=== PATIENT | female | born 1965 | race Caucasian/White ===

== ENCOUNTER 2019-01-21 18:32 | Emergency (ER) | payer MEDICARE ==
[~2019-01-21] VITALS: Ht 172.7 cm; Wt 65.8 kg
[2019-01-21] MEDS ORDERED: REMERON30 MG PO (18:57)
[2019-01-21] MEDS ORDERED: GEODON20 MG PO (18:57)
[2019-01-21] MEDS ORDERED: PRAZOSIN HCL5 MG PO (18:58)
[2019-01-21] MEDS ORDERED: NORCO 5-325 TA1 EACH PO (20:32)
== END 2019-01-21 20:59 | disposition home or self-care (01) ==
LOC: ED 18:32
DX: S42.332A Displaced oblique fracture of shaft of humerus, left arm, initial encounter for closed fracture (principal); F32.9 Major depressive disorder, single episode, unspecified; F43.10 Post-traumatic stress disorder, unspecified; Z87.891 Personal history of nicotine dependence; Z98.84 Bariatric surgery status; Z88.5 Allergy status to narcotic agent; Z88.0 Allergy status to penicillin; Z79.899 Other long term (current) drug therapy; Y04.0XXA Assault by unarmed brawl or fight, initial encounter
CPT/HCPCS: 72125; 73030; 73060; 96374; 96375; 99284-25; J1170; J1885; J2405

== ENCOUNTER 2020-03-28 06:35 | Day surgery (SDC) | payer MEDICARE, OTHER ==
[~2020-03-28] VITALS: Ht 172.7 cm; Wt 68.0 kg
[~2020-03-28 06:35] MED LIST: GEODON20 MG PO; LAMICTAL200 MG PO; LEVOTHYROXINE88 MCG PO; MULTI VITAMIN1 EACH PO; NORCO 5-325 TA1 EACH PO; PRAZOSIN HCL5 MG PO; REMERON30 MG PO; VITAMIN B-1100 M1 PO
--- NOTE | 2020-03-28 08:01 | NUR ---
03/28/20 0801 Shea Braun 0755 PATIENT ARRIVES TO PACU SLEEPING, DOES NOT RESPOND TO VERBAL STIMULI. RESP EVEN AND UNLABORED, NC AT 4 LITERS. TURNED OFF AFTER ARRIVAL TO PACU. ROOM AIR SATS >94%.
--- NOTE | 2020-03-28 08:43 | NUR ---
PT IS ALERT, ORIENTED AND ADMITTEDLY ANXIOUS. PT SAID HER PALMS WERE SWEATY. HELPED PT UNDERSTAND WHAT TO EXPECT-QUESTIONS ASKED AND ANSWERED. PT ASKED FOR PRAYER
--- NOTE | 2020-04-01 11:08 | PATH ---
[facility] [address], [place] [address] Signed SPECIMEN(S): A GASTRIC POUCH SPECIMEN(S): B LOWER ESOPHAGUS SPECIMEN(S): C MIDDLE ESOPHAGUS SPECIMEN SOURCE: A. GASTRIC POUCH B. LOWER ESOPHAGUS C. MIDDLE ESOPHAGUS CLINICAL HISTORY: Preop: Abdominal pain; severe epigastric pain; history of bariatric surgical procedure. Postop: Normal. MICROSCOPIC DESCRIPTION: Histologic sections of all submitted blocks are examined by light microscopy. These findings, together with the gross examination, support the pathologic diagnosis. FINAL PATHOLOGIC DIAGNOSIS: A. Stomach, gastric pouch, biopsy: - Oxyntic mucosa with no histopathologic abnormality. - Negative for Helicobacter organisms on HE stain. - Negative for dysplasia or malignancy. B. Esophagus, lower, biopsy: - Squamous mucosa with mild chronic inflammation and reactive epithelial changes, consistent with reflux esophagitis. - Negative for intestinal metaplasia, dysplasia, or malignancy. C. Esophagus, middle, biopsy: - Squamous mucosa with no histopathologic abnormality. - Negative for intestinal metaplasia, dysplasia, or malignancy. NAL:cml:C2NR GROSS DESCRIPTION: Three specimens are received in three containers, labeled ", Oct." A. The specimen, labeled "Oct, #1," and designated on the requisition "gastric pouch," is received in formalin and consists of one smith soft tissue fragment that measures 0.7 cm in greatest dimension. The specimen is entirely submitted in cassette (A1). B. The specimen, labeled "Oct, #2," and designated on the requisition "lower esophagus," is received in formalin and consists of one white-smith soft tissue fragment that measures 0.4 cm in greatest dimension. The specimen is entirely submitted in cassette (B1). PATIENT NAME: SALTY BELLE PATHOLOGY DATE OF : 61 REPORT #: [id number] PHYSICIAN: MAG PATHOLOGY PCP: BENY ORTIZ MD REPORT IS CONFIDENTIAL AND NOT TO BE RELEASED WITHOUT AUTHORIZATION [facility] [address] [place] [address] Signed C. The specimen, labeled "S[place] Belle, #3," and designated on the requisition "middle esophagus," is received in formalin and consists of two white-smith soft tissue fragments that measure 0.4 and 0.3 cm in greatest dimension. The specimen is entirely submitted in cassette (C1). FB (under the direct supervision of a pathologist) The Gross Description was prepared using a voice recognition system. The report was reviewed for accuracy; however, sound-alike word errors, addition and/or deletions may occur. If there is any question about this report, please contact Client Services. PERFORMING LABORATORY: The technical component was performed by [facility], [address] [place] [id number] (Clinical Phlebotomist: Yara Ríos MD; CLIA# [id number]). [facility], [address] [address] (CLIA# [id number]). Diagnostician: Mariana Prakash MD Pathologist Electronically Signed 04/01/2020 Copies: ~ PATIENT NAME: SALTY BELLE PATHOLOGY DATE OF : 61 REPORT #: [id number] PHYSICIAN: MAG PATHOLOGY PCP: BENY ROTIZ MD REPORT IS CONFIDENTIAL AND NOT TO BE RELEASED WITHOUT AUTHORIZATION
--- NOTE | 2020-04-02 10:50 | OR ---
[facility] [address], [place] [address] Signed DATE OF OPERATION: 03/28/2020 SURGEON: Gage Santana MD PREOPERATIVE DIAGNOSES: 1. History of Maninder-en-Y gastric bypass (2003). 2. Episodic severe abdominal pain. POSTOPERATIVE DIAGNOSES: 1. Normal-appearing esophagus, gastric pouch and Maninder limb without sign of stenosis, ulceration or neoplasm. 2. Small hiatal hernia at GE junction. PROCEDURE: Upper endoscopy. ANESTHESIA: Intravenous sedation, propofol infusion; Paul Langford CRNA. INDICATION: This 54-year-old white woman is a patient of Dr. Beny Ortiz. She underwent a Maninder-en-Y gastric bypass in 2003. She has had episodic bouts of severe epigastric pain. She is currently symptom free. She is admitted to undergo upper endoscopy to assess for neoplasm, ulceration or stenotic anastomoses. Mindful of the possibility of episodic internal herniation accounting for symptoms as well. The risks of bleeding, infection, and perforation were reviewed with her, she understands and wished to proceed. FINDINGS: The esophagus, stomach and jejunal limb were all normal. There was no sign of stenosis, ulceration, or other abnormality. CLOtest was negative. DESCRIPTION OF PROCEDURE: The patient was brought to the endoscopy suite and given topical Hurricaine hypopharyngeal anesthesia and placed in lateral decubitus position. She was given intravenous sedation with propofol infusional technique. An Olympus video upper endoscope was passed through the oropharynx after placement of a bite block, the vocal cords and surrounding soft tissue were normal. Scope was advanced to the esophagus throughout its length, it was normal. The scope entered into the stomach, which was a very small gastric pouch, it appeared non-inflamed. The anastomosis for jejunum was Electronically Signed By: GAGE SANTANA MD 04/02/20 1050 PATIENT NAME: KAREN BELLE OPERATIVE REPORT DATE OF : 61 REPORT #: [id number] PHYSICIAN: GAGE SANTANA MD PCP: BENY ORTIZ MD REPORT IS CONFIDENTIAL AND NOT TO BE RELEASED WITHOUT AUTHORIZATION [facility] [address], [place] [address] Signed entirely patent. There appeared to be somewhat of a [id number] anastomosis. The scope was passed down the jejunal limb as far as possible showing no sign of abnormality, specifically no stricture, neoplasm, or ulceration. The scope was withdrawn to the gastrojejunal anastomosis and it was normal. Biopsies were obtained of the gastric pouch and the GE junction. Retroflexed view was undertaken despite the small gastric pouch size, which showed a somewhat patulous flap valve. Withdrawal to the distal esophagus showed no sign of ulceration, neoplasm, varices or Lewis's epithelium. Biopsies were obtained. The scope was withdrawn to the mid esophagus where biopsies were additionally obtained. Scope was removed. The patient was taken to the recovery room in good condition. CONCLUSION DIAGNOSIS: No findings on upper endoscopy to account for episodic symptoms. PLAN: We will organize for a CT scan of the abdomen with GI contrast to assess if there may be in fact an internal hernia accounting for her episodic symptoms. MD SHERITA Guerin/JUSTICEL /[phone] cc: Beny Ortiz MD Copies: BENY ORTIZ DMD ~ Electronically Signed By: GAGE SANTANA MD 04/02/20 1050 PATIENT NAME: KAREN BELLE OPERATIVE REPORT DATE OF : 61 REPORT #: [id number] PHYSICIAN: GAGE SANTANA MD PCP: BENY ORTIZ MD REPORT IS CONFIDENTIAL AND NOT TO BE RELEASED WITHOUT AUTHORIZATION
== END 2020-03-28 08:25 | disposition home or self-care (01) ==
LOC: DS 06:35 → OPS 06:35 → DS 11:00
PROVIDERS: Surgery
PROC: 0DB68ZX Excision of Stomach, Via Natural or Artificial Opening Endoscopic, Diagnostic (ICD-10-PCS; 2020-03-28)
PROC: 0DB28ZX Excision of Middle Esophagus, Via Natural or Artificial Opening Endoscopic, Diagnostic (ICD-10-PCS; 2020-03-28)
PROC: 0DB38ZX Excision of Lower Esophagus, Via Natural or Artificial Opening Endoscopic, Diagnostic (ICD-10-PCS; principal; 2020-03-28 06:45)
DX: K20.9 Esophagitis, unspecified (principal); K44.9 Diaphragmatic hernia without obstruction or gangrene; B18.2 Chronic viral hepatitis C; F43.10 Post-traumatic stress disorder, unspecified; E03.9 Hypothyroidism, unspecified; F41.9 Anxiety disorder, unspecified; F32.9 Major depressive disorder, single episode, unspecified; Z98.84 Bariatric surgery status; Z88.0 Allergy status to penicillin; Z79.899 Other long term (current) drug therapy
CPT/HCPCS: 88305; J2704; J7121

== ENCOUNTER 2020-06-23 08:57 | Emergency (ER) | payer MEDICARE, OTHER ==
[~2020-06-23] VITALS: Ht 167.6 cm; Wt 68.0 kg
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
[2020-06-23] MEDS ORDERED: OMEPRAZOLE20 MG PO (09:11)
== END 2020-06-23 10:30 | disposition left against medical advice (07) ==
LOC: ED 08:57
DX: R10.13 Epigastric pain (principal); F43.10 Post-traumatic stress disorder, unspecified; F32.9 Major depressive disorder, single episode, unspecified; Z88.5 Allergy status to narcotic agent; Z88.0 Allergy status to penicillin; Z79.899 Other long term (current) drug therapy
CPT/HCPCS: 80053; 83690; 83735; 85025; 99284

== ENCOUNTER 2022-05-19 14:28 | Emergency (ER) | payer MEDICARE, OTHER ==
[~2022-05-19] VITALS: Ht 167.6 cm; Wt 86.4 kg
[~2022-05-19 14:28] MED LIST changes: +OMEPRAZOLE20 MG PO
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
[2022-05-19] MEDS ORDERED: CALCIUM 1,0001 EAC1 PO (16:12)
== END 2022-05-19 18:52 | disposition home or self-care (01) ==
LOC: ED 14:28
DX: S30.0XXA Contusion of lower back and pelvis, initial encounter (principal); Z88.0 Allergy status to penicillin; Z88.5 Allergy status to narcotic agent; Z88.8 Allergy status to other drugs, medicaments and biological substances; X58.XXXA Exposure to other specified factors, initial encounter
CPT/HCPCS: 72100; 96372; 99283-25; A9270; J2270

== ENCOUNTER 2023-08-22 18:34 | Emergency (ER) | payer MEDICARE, OTHER ==
[~2023-08-22] VITALS: Ht 172.7 cm; Wt 83.1 kg
[~2023-08-22 18:34] MED LIST changes: +CALCIUM 1,0001 EAC1 PO; +DIAZEPAM5 MG PO; +DICLOFENAC SOD100 G1; +DULOXETINE HCL30 MG PO; +GABAPENTIN300 MG PO; +MELOXICAM15 MG PO; +MIRTAZAPINE30 MG PO; +ZANAFLEX4 MG PO
[2023-08-22 21:04] VITALS: BP 128/94
== END 2023-08-22 21:07 | disposition home or self-care (01) ==
LOC: ED 18:34
DX: S39.012A Strain of muscle, fascia and tendon of lower back, initial encounter (principal); M54.6 Pain in thoracic spine; W06.XXXA Fall from bed, initial encounter; Z88.0 Allergy status to penicillin; Z88.5 Allergy status to narcotic agent; Z88.8 Allergy status to other drugs, medicaments and biological substances; Z79.899 Other long term (current) drug therapy; Z79.890 Hormone replacement therapy
CPT/HCPCS: 72070; 72100; 96374; 96375; 99283-25; J1200; J2175

== ENCOUNTER 2024-05-16 15:50 | Emergency (ER) | payer OTHER, MEDICARE ==
[~2024-05-16] VITALS: Ht 172.7 cm; Wt 86.4 kg
[2024-05-16] MEDS ORDERED: HYDROmorphone HCL 2 MG/ML VIAL IM ONE (17:00)
[2024-05-16] MEDS ORDERED: diphenhydrAMINE HCL 25 MG CAP PO ONE (18:15)
[2024-05-16 19:32] VITALS: BP 136/90
== END 2024-05-16 19:35 | disposition home or self-care (01) ==
LOC: ED 15:50
DX: S16.1XXA Strain of muscle, fascia and tendon at neck level, initial encounter (principal); S39.012A Strain of muscle, fascia and tendon of lower back, initial encounter; V43.52XA Car driver injured in collision with other type car in traffic accident, initial encounter; Z88.0 Allergy status to penicillin; Z88.5 Allergy status to narcotic agent; Z88.8 Allergy status to other drugs, medicaments and biological substances; Z79.899 Other long term (current) drug therapy; Z79.890 Hormone replacement therapy
CPT/HCPCS: 72125; 72131; 96372; 99284-25; J1170

== ENCOUNTER 2025-01-14 15:09 | Emergency (ER) | payer MEDICARE, OTHER ==
[~2025-01-14] VITALS: Ht 172.7 cm; Wt 83.3 kg
[2025-01-14] MEDS ORDERED: NITROFURANTOIN100 M1 PO (16:37)
[2025-01-14] MEDS ORDERED: LAMOTRIGINE200 MG PO (16:37)
[2025-01-14] MEDS ORDERED: DULOXETINE HCL60 MG PO (16:37)
[2025-01-14 16:48] LABS: BASOPHILS 0.5 % (0-2); EOSINOPHILS 4.1 % (0-6); HEMOGLOBIN 12.5 g/dL (12.0-18.0); LYMPHOCYTES 34.1 % (24-44); MCH 31.1 (27-36); MCHC 34.7 g/dl (30-36); MCV 89.6 fl (81-99); MONOCYTES 8.8 % (0-12); NEUTROPHILS 52.5 % (39-80); PLATELET COUNT 184 K/uL (140-440); RBC 4.02 M/ul (4.3-5.7); RDW 12.6 (10.5-15.0)
[2025-01-14 17:04] LABS: ALBUMIN 4.1 g/dL (3.4-5.0); ALBUMIN/GLOBULIN RATIO 1.28 (1.1-2.4); ANION GAP 14.1 (7-21); BILIRUBIN, TOTAL 0.4 mg/dL (0.2-1.0); BUN/CREATININE RATIO 18.69 (6.0-28.6); CALCIUM 9.4 mg/dL (8.5-10.1); CREATININE, SERUM 1.23 mg/dL (0.55-1.02); POTASSIUM 4.1 mmol/L (3.5-5.1); PROTEIN, TOTAL 7.3 g/dL (6.4-8.2)
[2025-01-14 19:05] VITALS: BP 129/94
--- NOTE | 2025-01-16 10:53 | EKG ---
[facility] [address] [facility] [place] [address] Signed Normal sinus rhythm Normal ECG No previous ECGs available Confirmed by Arturo Carlisle DO ([id number]) on 01/16/2025 10:53:23 AM Electronically Signed By: ARTURO CARLISLE DO 01/16/25 1053 PATIENT NAME: KAREN BELLE Electrocardiogram DATE OF : 61 PHYSICIAN: ARTURO CARLISLE DO REPORT #: [id number] REPORT IS CONFIDENTIAL AND NOT TO BE RELEASED WITHOUT AUTHORIZATION
== END 2025-01-14 19:05 | disposition home or self-care (01) ==
LOC: ED 15:09
PROVIDERS: Emergency Medicine
DX: R07.9 Chest pain, unspecified (principal); Z88.0 Allergy status to penicillin; Z88.5 Allergy status to narcotic agent; Z88.8 Allergy status to other drugs, medicaments and biological substances; Z79.899 Other long term (current) drug therapy; Z79.890 Hormone replacement therapy
CPT/HCPCS: 36415; 71045; 80053; 83735; 84484; 85025; 93005; 93010; 99285-25